=== PATIENT | female | born 1995 | race Caucasian/White ===

== ENCOUNTER 2017-07-04 08:38 | Emergency (ER) | payer SELFPAY ==
[~2017-07-04] VITALS: Ht 162.6 cm; Wt 61.2 kg
[2017-07-04 09:22] VITALS: BP 125/77
== END 2017-07-04 09:30 | disposition home or self-care (01) ==
LOC: ER 08:38
DX: L25.5 Unspecified contact dermatitis due to plants, except food (principal); S50.861A Insect bite (nonvenomous) of right forearm, initial encounter
CPT/HCPCS: 99282